=== PATIENT | female | born 1930 | race Caucasian/White ===

== ENCOUNTER 2016-11-18 20:13 | Inpatient (IN) | payer MEDICARE ==
[~2016-11-18] VITALS: Ht 144.8 cm; Wt 38.8 kg
[2016-11-18 21:00] LABS: BASOPHILS % (AUTO) 0.7 % (0.0-2.0); EOSINOPHILS # (AUTO) 0.1 K/uL (0.0-0.7); EOSINOPHILS % (AUTO) 2.3 % (0.0-7.0); HEMATOCRIT 31.3 % (31.2-41.9); HEMOGLOBIN 10.5 g/dL (10.9-14.3); LYMPHOCYTES # (AUTO) 1.5 K/uL (20.0-40.0); LYMPHOCYTES % (AUTO) 27.1 % (20.5-51.5); MEAN CORPUSCULAR HEMOGLOBIN 29.1 uug (24.7-32.8); MEAN CORPUSCULAR HGB CONC 34 g/dL (32.3-35.6); MEAN CORPUSCULAR VOLUME 86.9 fL (75.5-95.3); MONOCYTES # (AUTO) 0.4 K/uL (2.0-10.0); MONOCYTES % (AUTO) 7.7 % (0.0-11.0); NEUTROPHILS # (AUTO) 3.4 K/uL (1.8-8.9); NEUTROPHILS % (AUTO) 62.2 % (38.5-71.5); PLATELET COUNT (AUTO) 296 K/uL (179-408); RED CELL DISTRIBUTION WIDTH 14.7 % (12.3-17.7); WHITE BLOOD COUNT (AUTO) 5.4 K/uL (3.8-11.8)
[2016-11-18 21:13] LABS: ETHANOL 151 MG/DL (0-0)
[2016-11-18 21:15] LABS: CALCIUM 8.8 mg/dL (8.5-10.1); CARBON DIOXIDE 26 mmol/L (21-32); CHLORIDE 101 mmol/L (98-107); CREATININE 1.3 mg/dL (0.6-1.3); GLUCOSE 96 mg/dL (74-106); POTASSIUM 4.6 mmol/L (3.5-5.1); SODIUM SERUM 136 mmol/L (136-145); UREA NITROGEN, BLOOD 21 mg/dL (7-18)
[2016-11-18 21:17] LABS: AMMONIA < 10 umol/L (11-32)
[2016-11-18 21:21] LABS: ALANINE AMINOTRANSFERASE 15 U/L (14-59); ALBUMIN 3.7 g/dL (3.4-5.0); ALKALINE PHOSPHATASE 78 U/L (50-136); ASPARTATE AMINOTRANSFERASE 16 U/L (15-37); BILIRUBIN,DIRECT 0.1 mg/dL (0.0-0.2); BILIRUBIN,TOTAL 0.3 mg/dL (0.2-1.0); TOTAL PROTEIN, SERUM 7.4 g/dL (6.4-8.2)
[2016-11-18 21:26] LABS: TROPONIN I < 0.017 ng/mL (0.00-0.056)
[2016-11-18 21:27] LABS: LACTIC ACID 1.5 mmol/L (0.4-2.0)
[2016-11-18 21:29] LABS: ACETAMINOPHEN < 2.0 ug/mL (10-30)
[2016-11-18] MEDS ORDERED: HALOPERIDOL LACTATE 5 MG/1 ML VIAL IM ONE (21:30)
[2016-11-18] MEDS ORDERED: LORAZEPAM 2 MG/1 ML VIAL IV ONE (21:30)
[2016-11-18] MEDS ORDERED: diphenhydrAMINE 50 MG/1 ML VIAL IM ONE (21:30)
[2016-11-18 21:31] LABS: THYROID STIMULATING HORMONE 0.685 mIU/mL (0.358-3.740)
[2016-11-18] MEDS ORDERED: diphenhydrAMINE 50 MG/1 ML VIAL ONE (21:39)
[2016-11-18] MEDS ORDERED: HALOPERIDOL LACTATE 5 MG/1 ML VIAL ONE (21:40)
[2016-11-18] MEDS ORDERED: LORAZEPAM 2 MG/1 ML VIAL ONE (21:40)
[2016-11-18] MEDS ORDERED: LORAZEPAM 2 MG/1 ML VIAL IM ONE (21:45)
[2016-11-19] MEDS ORDERED: MORPHINE SULFATE 2 MG/1 ML DISP.SYRIN IV PRN
[2016-11-19] MEDS ORDERED: LORAZEPAM 2 MG/1 ML VIAL IV PRN
[2016-11-19] MEDS ORDERED: ACETAMINOPHEN 325 MG TABLET PO PRN ×2 (02:45)
[2016-11-19] MEDS ORDERED: MAGNESIUM HYDROXIDE 30 ML LIQUID UDC PO PRN (02:45)
[2016-11-19] MEDS ORDERED: ONDANSETRON 4 MG/2 ML VIAL IV PRN ×2 (02:45)
[2016-11-19 04:30] VITALS: BP 170/85
[2016-11-19 05:01] VITALS: BP 114/63
[2016-11-19 06:53] LABS: BASOPHILS % (AUTO) 0.5 % (0.0-2.0); EOSINOPHILS # (AUTO) 0.1 K/uL (0.0-0.7); EOSINOPHILS % (AUTO) 1.2 % (0.0-7.0); HEMATOCRIT 31.9 % (31.2-41.9); HEMOGLOBIN 10.9 g/dL (10.9-14.3); LYMPHOCYTES # (AUTO) 1.6 K/uL (20.0-40.0); LYMPHOCYTES % (AUTO) 17.8 % (20.5-51.5); MEAN CORPUSCULAR HEMOGLOBIN 29.7 uug (24.7-32.8); MEAN CORPUSCULAR HGB CONC 34 g/dL (32.3-35.6); MEAN CORPUSCULAR VOLUME 86.9 fL (75.5-95.3); MONOCYTES # (AUTO) 0.7 K/uL (2.0-10.0); MONOCYTES % (AUTO) 7.5 % (0.0-11.0); NEUTROPHILS # (AUTO) 6.5 K/uL (1.8-8.9); PLATELET COUNT (AUTO) 297 K/uL (179-408); RED BLOOD CELL COUNT(AUTO) 3.67 MIL/uL (3.63-4.92); RED CELL DISTRIBUTION WIDTH 14.7 % (12.3-17.7); WHITE BLOOD COUNT (AUTO) 8.9 K/uL (3.8-11.8)
[2016-11-19] MEDS ORDERED: PANTOPRAZOLE SODIUM 40 MG TABLET.DR PO SCH ×2 (07:00)
[2016-11-19 07:16] LABS: THYROID STIMULATING HORMONE 0.568 mIU/mL (0.358-3.740)
[2016-11-19 07:50] LABS: ALBUMIN 3.4 g/dL (3.4-5.0); BILIRUBIN,TOTAL 0.3 mg/dL (0.2-1.0); CALCIUM 8.8 mg/dL (8.5-10.1); CREATININE 1.3 mg/dL (0.6-1.3); MAGNESIUM 2.1 mg/dL (1.8-2.4); PHOSPHOROUS 4.2 mg/dL (2.5-4.9); POTASSIUM 4.6 mmol/L (3.5-5.1)
[2016-11-19] MEDS ORDERED: FOLIC ACID 1 MG TABLET PO SCH (09:00)
[2016-11-19] MEDS ORDERED: THIAMINE HCL 100 MG TABLET PO SCH (09:00)
[2016-11-19 11:45] VITALS: BP 106/59
[2016-11-19] MEDS ORDERED: SUCR1TAB26 PO (13:00)
[2016-11-19] MEDS ORDERED: TROS20TA3 PO (13:00)
[2016-11-19] MEDS ORDERED: RANI300T7 PO (13:00)
[2016-11-19] MEDS ORDERED: MULTIVITAMINS,THERAPEUTIC TABLET PO SCH (13:00)
[2016-11-19] MEDS ORDERED: ASPIRIN EC 81 MG TABLET.DR PO SCH (14:00)
[2016-11-19] MEDS ORDERED: Medication Not On Formulary EA (Trospium Chloride 20 MG) PO SCH (14:45)
[2016-11-19] MEDS ORDERED: RANITIDINE HCL 300 MG PO SCH (14:45)
[2016-11-19] MEDS ORDERED: ATOR10TA PO (14:46)
[2016-11-19] MEDS ORDERED: Folic Acid PO (14:46)
[2016-11-19] MEDS ORDERED: ASPI-618 PO (14:46)
[2016-11-19] MEDS ORDERED: MULT-24 PO (14:46)
[2016-11-19] MEDS ORDERED: PANT40TA2 PO (14:46)
[2016-11-19] MEDS ORDERED: THIA100T13 PO (14:46)
[2016-11-19] MEDS ORDERED: Acetaminophen PO (14:46)
[2016-11-19] MEDS ORDERED: FAMOTIDINE 20 MG TABLET PO SCH (15:15)
[2016-11-19 16:01] VITALS: BP 128/73
[2016-11-19] MEDS ORDERED: SUCRALFATE 1 G TABLET PO SCH (16:30)
[2016-11-19 17:02] LABS: *AMPHETAMINE, URINE NEGATIVE (NEGATIVE); *BARBITURATE, URINE NEGATIVE (NEGATIVE); *CANNABINOID, URINE NEGATIVE (NEGATIVE); *COCCAINE, URINE NEGATIVE (NEGATIVE); *OPIATE, URINE NEGATIVE (NEGATIVE); *PHENCYCLIDINE SCREEN,URINE NEGATIVE (NEGATIVE)
[2016-11-19 18:40] LABS: *BILIRUBIN,URIN NEGATIVE (NEGATIVE); *BLOOD, URINE 1+ (NEGATIVE); *CLARITY,URINE SLIGHTLY CLOUDY (CLEAR); *COLOR,URINE YELLOW (YELLOW); *KETONES,URINE NEGATIVE (NEGATIVE); *PROTEIN,URINE 2+ (NEGATIVE); *UROBILINOGEN,URINE 0.2 E.U./dl (NORMAL); LEUKOCYTE ESTERASE ,URINE 2+ (NEGATIVE); UGLUCOSE NEGATIVE (NEGATIVE)
[2016-11-19 18:51] LABS: NITRITE, URINE POSITIVE (NEGATIVE)
[2016-11-19 18:53] LABS: BACTERIA,URINE MANY /HPF (NONE SEEN); RENAL EPITHELIAL CELLS,URINE MODERATE /LPF (NONE SEEN); SQUAMOUS EPITHELIAL CELL,UR FEW /HPF (NONE SEEN); WBC,URINE TNTC /HPF (0-3)
[2016-11-19] MEDS ORDERED: ATORVASTATIN 10 MG TABLET PO SCH (21:00)
[2016-11-20] MEDS ORDERED: AMLO2.5T2 PO (16:19)
[2016-11-20] MEDS ORDERED: METO50TA7 PO (16:19)
[2016-11-20] MEDS ORDERED: CLOP75TA2 PO (16:19)
[2016-11-20] MEDS ORDERED: LEVO75TA PO (16:19)
[2016-11-20] MEDS ORDERED: RANI300T7 PO (16:19)
[2016-11-20] MEDS ORDERED: FLEC50TA2 PO (16:19)
== END 2016-11-19 17:00 | DRG 896 ==
LOC: ER 20:13 → MED 11-19 03:29
PROVIDERS: ADMIT Nurse Practitioner Acute Care; ATTEND Internal Medicine
DX: F10.129 Alcohol abuse with intoxication, unspecified (principal); I50.33 Acute on chronic diastolic (congestive) heart failure; G92 Toxic encephalopathy; Z86.73 Personal history of transient ischemic attack (TIA), and cerebral infarction without residual deficits; M47.812 Spondylosis without myelopathy or radiculopathy, cervical region; M48.02 Spinal stenosis, cervical region; Y90.6 Blood alcohol level of 120-199 mg/100 ml; D64.9 Anemia, unspecified; E78.5 Hyperlipidemia, unspecified; F17.210 Nicotine dependence, cigarettes, uncomplicated; N32.81 Overactive bladder; Z91.81 History of falling; F39 Unspecified mood [affective] disorder; I11.0 Hypertensive heart disease with heart failure
CPT/HCPCS: 36415; 70030-TC; 70450; 71010; 72125; 80307; 83605; 83735; 84100; 84443; 85025; 85730; 87040; 87077; 87086; 93005; 97001; A4663; G0480-TC; G6040-TC; J1200; J1630; J2060

== ENCOUNTER 2016-11-19 17:27 | Inpatient (IN) | payer MEDICARE ==
[~2016-11-19] VITALS: Ht 144.8 cm; Wt 41.7 kg
[2016-11-19 17:00] VITALS: BP 88/33
[~2016-11-19 17:27] MED LIST: ASPI-618 PO; ATOR10TA PO; Acetaminophen PO; Folic Acid PO; MULT-24 PO; PANT40TA2 PO; RANI300T7 PO; SUCR1TAB26 PO; THIA100T13 PO; TROS20TA3 PO
[2016-11-19] MEDS ORDERED: ACETAMINOPHEN 325 MG TABLET PO PRN (17:45)
[2016-11-19] MEDS ORDERED: MAGNESIUM HYDROXIDE 30 ML LIQUID UDC PO PRN (17:45)
[2016-11-19] MEDS ORDERED: MAG HYDROX/AL HYDROX/SIMETH 30 ML LIQUID UDC PO PRN (17:45)
[2016-11-19] MEDS ORDERED: LORAZEPAM 0.5 MG TABLET PO PRN (19:00)
[2016-11-19] MEDS ORDERED: TEMAZEPAM 7.5 MG CAPSULE PO PRN (19:00)
[2016-11-20] MEDS ORDERED: PANTOPRAZOLE SODIUM 40 MG TABLET.DR PO SCH (07:00)
[2016-11-20] MEDS ORDERED: Medication Not On Formulary EA ([Folic Acid] 1 MG) PO SCH (09:00)
[2016-11-20] MEDS ORDERED: THIAMINE HCL 100 MG TABLET PO SCH (09:00)
[2016-11-20] MEDS ORDERED: SUCRALFATE 1 G TABLET PO SCH (09:00)
[2016-11-20] MEDS ORDERED: ASPIRIN EC 81 MG TABLET.DR PO SCH (09:00)
[2016-11-20] MEDS ORDERED: MULTIVITAMINS,THERAPEUTIC TABLET PO SCH (09:00)
[2016-11-20] MEDS ORDERED: Medication Not On Formulary EA (Trospium Chloride 20 MG) PO SCH (09:00)
[2016-11-20] MEDS ORDERED: FLEC50TA2 PO (16:19)
[2016-11-20] MEDS ORDERED: METO50TA7 PO (16:19)
[2016-11-20] MEDS ORDERED: RANI300T7 PO (16:19)
[2016-11-20] MEDS ORDERED: CLOP75TA2 PO (16:19)
[2016-11-20] MEDS ORDERED: LEVO75TA PO (16:19)
[2016-11-20] MEDS ORDERED: AMLO2.5T2 PO (16:19)
[2016-11-20] MEDS ORDERED: ATORVASTATIN 10 MG TABLET PO SCH (21:00)
== END 2016-11-19 21:45 | disposition short-term general hospital (02) | DRG 885 ==
LOC: GPS 17:27
PROVIDERS: ADMIT Psychiatry & Neurology Psychiatry; ATTEND Internal Medicine
DX: F29 Unspecified psychosis not due to a substance or known physiological condition (principal); N39.0 Urinary tract infection, site not specified

== ENCOUNTER 2016-11-19 21:47 | Inpatient (IN) | payer MEDICARE ==
[~2016-11-19] VITALS: Ht 149.9 cm; Wt 47.6 kg
--- NOTE | 2016-11-19 21:50 | NUR ---
PATIENT ADMITTED FROM [facility] WITH DX OF UTI, UNDER THE CARE OF DR. BRYAN, VIA MD ELOISE AWARE WITH ADMITTING ORDERS.
[2016-11-19] MEDS ORDERED: CEFTRIAXONE 1 G in IV DEXTROSE 5% 50 ML IV SCH (22:45)
[2016-11-19] MEDS ORDERED: ACETAMINOPHEN 325 MG TABLET PO PRN (22:45)
[2016-11-19] MEDS ORDERED: Medication Not On Formulary EA ([Acetaminophen] (Tylenol) 650 MG) PO PRN (22:45)
[2016-11-19] MEDS ORDERED: ONDANSETRON 4 MG/2 ML VIAL IV PRN (22:45)
--- NOTE | 2016-11-19 23:00 | NUR ---
PATIENT VALUABLES REMAINS IN MHU. DURING INVENTORY PATIENT HAS CHECKBOOK AND VISA CARD ON HER PURSE, CHECKBOOK AND VISA WAS GIVEN TO RN LOAD PLANNER FOR SAFE KEEPING.
[2016-11-19] MEDS: IV NS 1000 ML 1,000 ML IV PRN (23:16)
--- NOTE | 2016-11-19 23:30 | NUR ---
PATIENT REFUSED TO ANSWERS QUESTION DURING INTERVIEW REGARDING FAMILY MEDICAL HISTORY, REFUSED BODY CHECK QUESTIONING WHY WE HAVE DO BODY CHECK, AND THE INTERVIEWS. EXPLAINED TO PATIENT THE PURPOSE OF INTERVIEW AND BODY CHECK, BUT DON'T WANT TO ACCEPT EXPLANATIONS.
[2016-11-19] MEDS ORDERED: CEFTRIAXONE 1 G VIAL ONE (23:57)
[2016-11-20 00:35] VITALS: BP 92/57
--- NOTE | 2016-11-20 03:27 | NUR ---
EDUARDO HO ORDERED TO CONTINUE RESTORIL FOR SLEEP, MOM, AND MAALOX.
[2016-11-20] MEDS ORDERED: MAG HYDROX/AL HYDROX/SIMETH 30 ML LIQUID UDC PO PRN (03:30)
[2016-11-20] MEDS ORDERED: MAGNESIUM HYDROXIDE 30 ML LIQUID UDC PO PRN (03:30)
[2016-11-20] MEDS ORDERED: TEMAZEPAM 7.5 MG CAPSULE PO PRN (03:30)
--- NOTE | 2016-11-20 04:48 | NUR ---
PATIENT ALERT, WITH EPISODES OF HOSTILE BEHAVIOR, ALWAYS HAS AN OBJECTION WHEN CARE IS PROVIDED DESPITE EXPLANATIONS PRIOR CARE, REFUSED TO ANSWERS QUESTIONS DURING INTERVIEW. STILL COMPLAIN OF DISCOMFORT WHEN URINATING, BUT REFUSED PAIN MEDS. CONT ON 1;1 SITTER FOR SAFETY.
[2016-11-20 05:16] VITALS: BP 154/73
[2016-11-20 06:56] LABS: BASOPHILS % (AUTO) 0.6 % (0.0-2.0); EOSINOPHILS # (AUTO) 0.1 K/uL (0.0-0.7); EOSINOPHILS % (AUTO) 2.1 % (0.0-7.0); LYMPHOCYTES # (AUTO) 1.8 K/uL (20.0-40.0); LYMPHOCYTES % (AUTO) 34.2 % (20.5-51.5); MEAN CORPUSCULAR HEMOGLOBIN 29.3 uug (24.7-32.8); MEAN CORPUSCULAR HGB CONC 33 g/dL (32.3-35.6); MEAN CORPUSCULAR VOLUME 87.9 fL (75.5-95.3); MONOCYTES # (AUTO) 0.6 K/uL (2.0-10.0); MONOCYTES % (AUTO) 10.8 % (0.0-11.0); NEUTROPHILS # (AUTO) 2.8 K/uL (1.8-8.9); NEUTROPHILS % (AUTO) 52.3 % (38.5-71.5); PLATELET COUNT (AUTO) 269 K/uL (179-408); RED BLOOD CELL COUNT(AUTO) 3.41 MIL/uL (3.63-4.92); RED CELL DISTRIBUTION WIDTH 14.7 % (12.3-17.7)
[2016-11-20] MEDS: PANTOPRAZOLE SODIUM 40 MG TABLET.DR PO SCH (07:00)
[2016-11-20 07:09] LABS: WHITE BLOOD COUNT (AUTO) 5.3 K/uL (3.8-11.8)
[2016-11-20 07:26] LABS: BILIRUBIN,TOTAL 0.3 mg/dL (0.2-1.0); CALCIUM 8.4 mg/dL (8.5-10.1); MAGNESIUM 2.1 mg/dL (1.8-2.4); PHOSPHOROUS 4.2 mg/dL (2.5-4.9); POTASSIUM 4.2 mmol/L (3.5-5.1); TOTAL PROTEIN, SERUM 6.4 g/dL (6.4-8.2)
[2016-11-20 07:27] LABS: CREATININE 1.8 mg/dL (0.6-1.3)
[2016-11-20] MEDS ORDERED: SUCRALFATE 1 G TABLET PO SCH ×2 (07:30→11:30)
[2016-11-20] MEDS: MULTIVITAMINS,THERAPEUTIC TABLET PO SCH (08:49)
[2016-11-20] MEDS: ASPIRIN EC 81 MG TABLET.DR PO SCH (08:49)
[2016-11-20] MEDS: THIAMINE HCL 100 MG TABLET PO SCH (08:49)
[2016-11-20] MEDS: FOLIC ACID 1 MG TABLET PO SCH (08:49)
--- NOTE | 2016-11-20 08:51 | NUR ---
Patient received in bed resting. No s/s of distress noted. Refusing medications and procedures. Keep asking for Synthroid, but there is not past documentation showing that she takes Synthroid on the daily basis. Will follow up with the MD.
[2016-11-20] MEDS ORDERED: Medication Not On Formulary EA (Trospium Chloride 20 MG) PO SCH (09:00)
[2016-11-20] MEDS ORDERED: Medication Not On Formulary EA ([Folic Acid] 1 MG) PO SCH (09:00)
[2016-11-20] MEDS: LORAZEPAM 2 MG/1 ML VIAL IV PRN ×3 (09:32→23:26)
[2016-11-20 11:25] VITALS: BP 116/55
[2016-11-20] MEDS: QUETIAPINE FUMARATE 25 MG TABLET PO SCH ×2 (12:30→20:46)
[2016-11-20] MEDS: DIVALPROEX SPRINKLE 125 MG CAP.SPRINK PO SCH ×2 (12:30→20:47)
[2016-11-20] MEDS: IV NS 1000 ML 1,000 ML IV PRN (14:21)
[2016-11-20 15:41] VITALS: BP 125/55
[2016-11-20] MEDS ORDERED: LEVO75TA PO (16:19)
[2016-11-20] MEDS ORDERED: METO50TA7 PO (16:19)
[2016-11-20] MEDS ORDERED: RANI300T7 PO (16:19)
[2016-11-20] MEDS ORDERED: AMLO2.5T2 PO (16:19)
[2016-11-20] MEDS ORDERED: CLOP75TA2 PO (16:19)
[2016-11-20] MEDS ORDERED: FLEC50TA2 PO (16:19)
--- NOTE | 2016-11-20 18:33 | NUR ---
Patient was very hostile and angry during the day, demanding to get her medications, Medications that she kept stating, but were not order by MD. Refused all medications and procedures ordered. Notified LETTERPRESS SETTER Francisca. Kathryn, charge nurse entered medications that she used to take before. Sitter 1:1. Safety and comfort provided. Will continue monitoring.
[2016-11-20 20:36] VITALS: BP 174/91
[2016-11-20] MEDS: ATORVASTATIN 10 MG TABLET PO SCH (20:45)
--- NOTE | 2016-11-20 20:53 | NUR ---
Patient has an elevated blood pressure of 174/91. Will contact regarding patients blood pressure. All other v/s are WNL. Will continue to monitor. Addendum: 11/21/16 at 0510 by LUCY LANGE RN Contacted regarding patients blood pressure
[2016-11-20] MEDS: CLONIDINE HCL 0.1 MG TABLET PO PRN (21:13)
[2016-11-20] MEDS ORDERED: CLONIDINE HCL 0.1 MG TABLET ONE (21:16)
--- NOTE | 2016-11-20 21:21 | NUR ---
PRN Catapres given for elevated blood pressure of 174/91 per MD order. Will monitor closely and re-evaluate
[2016-11-20 23:00] VITALS: BP 141/80
--- NOTE | 2016-11-20 23:00 | NUR ---
The PRN Catapres given for elevated blood pressure was effective. B/P= 141/80. Will continue to monitor closely
--- NOTE | 2016-11-20 23:30 | NUR ---
PRN Ativan given for extreme agitation. Sitter at bedside for safety. will continue to monitor
[2016-11-21] MEDS: CEFTRIAXONE 1 G in IV DEXTROSE 5% 50 ML IV SCH ×2
[2016-11-21 04:00] VITALS: BP 137/78
[2016-11-21] MEDS: IV NS 1000 ML 1,000 ML IV PRN ×2 (06:23→22:18)
[2016-11-21] MEDS: LORAZEPAM 2 MG/1 ML VIAL IV PRN (06:43)
[2016-11-21 06:51] LABS: BILIRUBIN,TOTAL 0.6 mg/dL (0.2-1.0); CALCIUM 8.7 mg/dL (8.5-10.1); MAGNESIUM 1.8 mg/dL (1.8-2.4); PHOSPHOROUS 3.8 mg/dL (2.5-4.9); POTASSIUM 4.8 mmol/L (3.5-5.1); TOTAL PROTEIN, SERUM 6.6 g/dL (6.4-8.2)
[2016-11-21 06:52] LABS: CREATININE 1.4 mg/dL (0.6-1.3)
[2016-11-21] MEDS: PANTOPRAZOLE SODIUM 40 MG TABLET.DR PO SCH (07:00)
[2016-11-21 07:30] LABS: BASOPHILS % (AUTO) 0.5 % (0.0-2.0); EOSINOPHILS # (AUTO) 0.1 K/uL (0.0-0.7); EOSINOPHILS % (AUTO) 1.9 % (0.0-7.0); HEMATOCRIT 30.8 % (31.2-41.9); HEMOGLOBIN 10.5 g/dL (10.9-14.3); LYMPHOCYTES # (AUTO) 1.8 K/uL (20.0-40.0); LYMPHOCYTES % (AUTO) 29.2 % (20.5-51.5); MEAN CORPUSCULAR HEMOGLOBIN 29.9 uug (24.7-32.8); MEAN CORPUSCULAR HGB CONC 34 g/dL (32.3-35.6); MEAN CORPUSCULAR VOLUME 87.7 fL (75.5-95.3); MONOCYTES # (AUTO) 0.6 K/uL (2.0-10.0); MONOCYTES % (AUTO) 10.8 % (0.0-11.0); NEUTROPHILS # (AUTO) 3.5 K/uL (1.8-8.9); NEUTROPHILS % (AUTO) 57.6 % (38.5-71.5); PLATELET COUNT (AUTO) 267 K/uL (179-408); RED BLOOD CELL COUNT(AUTO) 3.51 MIL/uL (3.63-4.92)
[2016-11-21] MEDS: FOLIC ACID 1 MG TABLET PO SCH (09:00)
[2016-11-21] MEDS: MULTIVITAMINS,THERAPEUTIC TABLET PO SCH (09:00)
[2016-11-21] MEDS ORDERED: LEVOTHYROXINE SODIUM 75 MCG TABLET PO SCH (09:00)
[2016-11-21] MEDS: CLOPIDOGREL 75 MG TABLET PO SCH (09:00)
[2016-11-21] MEDS: THIAMINE HCL 100 MG TABLET PO SCH (09:00)
[2016-11-21] MEDS: DIVALPROEX SPRINKLE 125 MG CAP.SPRINK PO SCH ×2 (09:00→20:53)
--- NOTE | 2016-11-21 09:20 | NUR ---
CLINICAL PHARMACY NOTE(REVIEW OF [facility]) Patient is an 86 year old white female, who again refused to provide her medical and surgical history, who was admitted to medical floor of [facility] for altered mental status. According to records, she was brought her by EMS because she could not walk. Patient reports that she drinks 1 glass of wine at night, and last night she was getting dinner when she fell. She denies head involvement, or syncopal episode. Per record, she has history of alcohol abuse, frequent fall, and small stroke. Patient gets agitated and refused to provide detailed information. Patient was transferred to psychiatric unit and placed on 5150 for GD, and while in the psychiatric unit, her SBP was noted to be 80s, and was found to have urinary tract infection and was decided to send her back to medical floor for management of her medical issues. Overnight, she was noted to be screaming and she had to be moved to another room. All medications review as of today high risk medications include aspirin, quetiapine,temazepam, lorazepam, and pantoprazole. Aspirin increase risk of GI bleed. History incomplete, home medications included flecainide patient may have history of AF. Quetiapine increased risk of cerebrovascular accident (stroke) and greater rate of cognitive decline and mortality in persons with dementia. Ordered by psychiatrist. Temazepam and lorazepam in general, all benzodiazepines increase risk of cognitive impairment, delirium, falls, fractures. Also ordered by psychiatrist. Both ordered on an as needed bases. Pantoprazole increase risk of C.Diff and bone fracture. Use should be limited to no more than 8 weeks unless otherwise indicated Patient is on aspirin pantoprazole may help prevent GI bleeding from aspirin. No recommendations at this time
[2016-11-21] MEDS: QUETIAPINE FUMARATE 25 MG TABLET PO SCH ×2 (09:21→20:53)
[2016-11-21] MEDS: ASPIRIN EC 81 MG TABLET.DR PO SCH (09:23)
--- NOTE | 2016-11-21 09:39 | NUR ---
read patient all meds and pt stated she would take seroquel, depakote, aspirin and plavix. refused all others. however pt took seroquel and then refused the rest. depakote, aspirin and plavix thrown away in sharps container the rest were returned to [facility].
[2016-11-21 10:53] VITALS: BP 145/88
[2016-11-21] MEDS: AMLODIPINE 2.5 MG TABLET PO SCH (14:56)
[2016-11-21] MEDS: LEVOTHYROXINE SODIUM 50 MCG TABLET PO SCH (14:56)
--- NOTE | 2016-11-21 15:49 | NUR ---
Submitted an APS report [Intake ID# [id number]] for self-neglect.
[2016-11-21 15:56] VITALS: BP 150/109
[2016-11-21] MEDS: CLONIDINE HCL 0.1 MG TABLET PO PRN (16:26)
--- NOTE | 2016-11-21 18:26 | NUR ---
PHYSICAL THERAPY SAW PT TODAY AND SAT PT UP IN CHAIR, PT ATE DINNER IN CHAIR AND WAS JUST PUT BACK IN BED. ALL SAFETY AND COMFORT MEASURES ATTENDED TO, PT WAS NOT COMPLIANT WITH ALL MEDICATIONS ONLY CERTAIN ONES THAT SHE WANTED TO TAKE. PT WAS VERBALLY HOSTILE THROUGHOUT SHIFT. 1:1 SITTER AND CALL LIGHT IN REACH
[2016-11-21 19:50] VITALS: BP 127/72
--- NOTE | 2016-11-21 20:00 | NUR ---
PATIENT RECEIVED IN BED RESTING COMFORTABLY WITH 1:1 AT BEDSIDE. PATIENT IS RUDE AND VERBALLY HOSTILE TOWARDS STAFF, REDIRECTION PROVIDED. HEP LOCK IN RIGHT FOREARM RUNNING NORMAL SALINE AT 60ML/HR. PT LUNGS CLEAR WITH AUSCULTATION. BED IN LOW AND LOCKED POSITION WITH CALL LIGHT WITHIN REACH.
[2016-11-21] MEDS: ATORVASTATIN 10 MG TABLET PO SCH (20:53)
--- NOTE | 2016-11-21 22:00 | NUR ---
PT REFUSED BEDTIME MEDICATION DESPITE EDUCATION, WILL NOTIFY MD. PT STATES "I DON'T TAKE DEPAKOTE" 'GET AWAY FROM ME". PT REMAINS HOSTILE UPON APPROACH DESPITE COMFORT MEASURES PROVIDED. NO ACUTE DISTRESS NOTED. 1:! AT BEDSIDE.
[2016-11-22] MEDS: CEFTRIAXONE 1 G in IV DEXTROSE 5% 50 ML IV SCH (01:01)
--- NOTE | 2016-11-22 03:29 | NUR ---
PT RESTING IN BED COMFORTABLY AT THIS TIME. NO ACUTE DISTRESS NOTED. SAFETY MEASURES MAINTAINED.
--- NOTE | 2016-11-22 05:49 | NUR ---
PATIENT RESTING COMFORTABLY IN BED. REMAINS VERBALLY ABUSIVE TOWARDS STAFF UPON APPROACH. NO ACUTE DISTRESS NOTED. SAFETY MEASURES MAINTAINED. 1:1 AT BEDSIDE.
[2016-11-22] MEDS: PANTOPRAZOLE SODIUM 40 MG TABLET.DR PO SCH (06:31)
[2016-11-22] MEDS: LEVOTHYROXINE SODIUM 50 MCG TABLET PO SCH (06:31)
[2016-11-22 07:25] VITALS: BP 143/84
[2016-11-22] MEDS: DIVALPROEX SPRINKLE 125 MG CAP.SPRINK PO SCH (09:00)
[2016-11-22] MEDS: THIAMINE HCL 100 MG TABLET PO SCH (09:00)
[2016-11-22] MEDS: QUETIAPINE FUMARATE 25 MG TABLET PO SCH (09:00)
[2016-11-22] MEDS: MULTIVITAMINS,THERAPEUTIC TABLET PO SCH (09:00)
[2016-11-22] MEDS: ASPIRIN EC 81 MG TABLET.DR PO SCH (09:00)
[2016-11-22] MEDS ORDERED: CLONIDINE HCL 0.1 MG TABLET PO PRN (10:00)
[2016-11-22] MEDS ORDERED: METOPROLOL SUCCINATE XL 50 MG TAB.SR.24H PO SCH (10:00)
[2016-11-22] MEDS: FOLIC ACID 1 MG TABLET PO SCH (10:09)
[2016-11-22] MEDS: CLOPIDOGREL 75 MG TABLET PO SCH (10:10)
[2016-11-22] MEDS: AMLODIPINE 2.5 MG TABLET PO SCH (10:10)
[2016-11-22] MEDS ORDERED: TEMA7.5C PO (12:39)
[2016-11-22] MEDS ORDERED: ASPI-618 PO (12:39)
[2016-11-22] MEDS ORDERED: Acetaminophen PO (12:39)
[2016-11-22] MEDS ORDERED: CLON0.1T14 PO (12:39)
[2016-11-22] MEDS ORDERED: ATOR10TA PO (12:39)
[2016-11-22] MEDS ORDERED: PANT40TA2 PO (12:39)
[2016-11-22] MEDS ORDERED: DIVA125C PO (12:39)
[2016-11-22] MEDS ORDERED: METO50TA7 PO (12:39)
[2016-11-22] MEDS ORDERED: Levothyroxine Sodium PO (12:39)
[2016-11-22] MEDS ORDERED: Folic Acid PO (12:39)
[2016-11-22] MEDS ORDERED: CEFT1PIG2 IV (12:39)
[2016-11-22] MEDS ORDERED: MULT-24 PO (12:39)
[2016-11-22] MEDS ORDERED: MAG30ORA PO (12:39)
[2016-11-22] MEDS ORDERED: QUET25TA PO (12:39)
[2016-11-22] MEDS ORDERED: LORA2VIA6 IV (12:39)
[2016-11-22] MEDS ORDERED: CLOP75TA2 PO (12:39)
[2016-11-22] MEDS ORDERED: THIA100T13 PO (12:39)
[2016-11-22] MEDS ORDERED: Amlodipine Besylate PO (12:39)
[2016-11-22 13:16] LABS: ALBUMIN 3.2 g/dL (3.4-5.0); BILIRUBIN,TOTAL 0.3 mg/dL (0.2-1.0); CALCIUM 8.6 mg/dL (8.5-10.1); CREATININE 1.2 mg/dL (0.6-1.3); MAGNESIUM 1.7 mg/dL (1.8-2.4); PHOSPHOROUS 3.7 mg/dL (2.5-4.9); POTASSIUM 4.2 mmol/L (3.5-5.1); TOTAL PROTEIN, SERUM 7.1 g/dL (6.4-8.2)
[2016-11-22 13:32] LABS: BASOPHILS % (AUTO) 0.3 % (0.0-2.0); EOSINOPHILS # (AUTO) 0.1 K/uL (0.0-0.7); EOSINOPHILS % (AUTO) 0.9 % (0.0-7.0); HEMATOCRIT 32.1 % (31.2-41.9); HEMOGLOBIN 10.9 g/dL (10.9-14.3); LYMPHOCYTES # (AUTO) 0.9 K/uL (20.0-40.0); LYMPHOCYTES % (AUTO) 14.7 % (20.5-51.5); MEAN CORPUSCULAR HEMOGLOBIN 29.7 uug (24.7-32.8); MEAN CORPUSCULAR HGB CONC 34 g/dL (32.3-35.6); MONOCYTES # (AUTO) 0.4 K/uL (2.0-10.0); MONOCYTES % (AUTO) 7.1 % (0.0-11.0); NEUTROPHILS # (AUTO) 4.8 K/uL (1.8-8.9); PLATELET COUNT (AUTO) 271 K/uL (179-408); RED BLOOD CELL COUNT(AUTO) 3.65 MIL/uL (3.63-4.92); RED CELL DISTRIBUTION WIDTH 14.4 % (12.3-17.7); WHITE BLOOD COUNT (AUTO) 6.2 K/uL (3.8-11.8)
[2016-11-22 13:39] VITALS: BP 111/65
--- NOTE | 2016-11-22 14:07 | NUR ---
The patient is medically cleared per Anyi Walters NP. [facility] care of Dr. Veloz. She continues to refuse to take her medications, very rude to the staff including to the MDs. She denies ETOH abuse and insists on going back home. Submitted an APS report for self-neglect on 11/21/16.
[2016-11-22] MEDS: LORAZEPAM 2 MG/1 ML VIAL IV PRN (15:53)
[2016-11-22 16:27] VITALS: BP_SYST 104; BP_SYST 111; BP_DIAS 65; BP_DIAS 66
[2016-11-22] MEDS ORDERED: CEFTAZIDIME 1 G in IV DEXTROSE 5% 50 ML IV SCH ×4 (18:00)
--- NOTE | 2016-11-22 18:47 | NUR ---
Patient been in chair during my shift. No s/s of distress noted. Denied Pain. Refused all medications except her BP and Synthroid. Patient is hostile and angry most of the time, she wants everything on her way. Collaborate with PT, ambulatory only with assistance. She walked around the unit with my assistance and JATIN Cornell. Patient got discharge to [facility]/psych, she refused to sign dc papers. Kathryn, charge nurse and I signed it. Last dose of antibiotics was given. Patient was taken by sheep sorter in stable condition.
[2016-11-23] MEDS ORDERED: CEFTAZIDIME 1 G VIAL IM SCH (17:00)
[2016-11-23] MEDS ORDERED: CEFTAZIDIME 2 GM IM SCH (17:30)
== END 2016-11-22 18:50 | DRG 682 ==
LOC: MED 21:47
PROVIDERS: ADMIT Internal Medicine; ATTEND Internal Medicine
DX: N17.0 Acute kidney failure with tubular necrosis (principal); I50.33 Acute on chronic diastolic (congestive) heart failure; G92 Toxic encephalopathy; N39.0 Urinary tract infection, site not specified; D64.9 Anemia, unspecified; E03.9 Hypothyroidism, unspecified; E78.5 Hyperlipidemia, unspecified; F39 Unspecified mood [affective] disorder; Z86.73 Personal history of transient ischemic attack (TIA), and cerebral infarction without residual deficits; Z91.81 History of falling; Y92.009 Unspecified place in unspecified non-institutional (private) residence as the place of occurrence of the external cause; W19.XXXA Unspecified fall, initial encounter; M48.02 Spinal stenosis, cervical region; M47.812 Spondylosis without myelopathy or radiculopathy, cervical region; I51.7 Cardiomegaly; F17.210 Nicotine dependence, cigarettes, uncomplicated; F10.20 Alcohol dependence, uncomplicated; Y90.9 Presence of alcohol in blood, level not specified; N32.81 Overactive bladder; F29 Unspecified psychosis not due to a substance or known physiological condition; I67.2 Cerebral atherosclerosis; Z90.10 Acquired absence of unspecified breast and nipple; Z85.3 Personal history of malignant neoplasm of breast; Z91.14 Patient's other noncompliance with medication regimen
CPT/HCPCS: 36415; 82306; 83735; 84100; 85025; 92506; 97001; 97003; 97116; 97530; A4663; J0696; J0713; J2060; J7030; J7060

== ENCOUNTER 2016-11-22 19:53 | Inpatient (IN) | payer MEDICARE ==
[~2016-11-22] VITALS: Ht 152.4 cm; Wt 41.7 kg
[~2016-11-22 19:53] MED LIST changes: +AMLO2.5T2 PO; +Amlodipine Besylate PO; +CEFT1PIG2 IV; +CLON0.1T14 PO; +CLOP75TA2 PO; +DIVA125C PO; +FLEC50TA2 PO; +LEVO75TA PO; +LORA2VIA6 IV; +Levothyroxine Sodium PO; +MAG30ORA PO; +METO50TA7 PO; +QUET25TA PO; +TEMA7.5C PO
[2016-11-22] MEDS ORDERED: ACETAMINOPHEN 325 MG TABLET PO PRN (20:00)
[2016-11-22] MEDS ORDERED: CLONAZEPAM 0.5 MG TABLET PO SCH (20:00)
[2016-11-22] MEDS ORDERED: TEMAZEPAM 7.5 MG CAPSULE PO PRN (20:00)
[2016-11-22] MEDS ORDERED: MAGNESIUM HYDROXIDE 30 ML LIQUID UDC PO PRN (20:00)
[2016-11-22 20:46] VITALS: BP 139/79
--- NOTE | 2016-11-22 22:00 | NUR ---
received to care, at 1900, from the second floor, on a 14 day hold, for being gravely disabled. she was initially admitted here from home, on 11/19/16, but she was transferred to medical floor for low b/p, and UTI. before coming to the hospital, she was reportedly living at home, alone, with a parts counter specialist caregiver, who comes to help, only with shopping, and transportation. she fell at home, and called 911. the paramedics brought her to the emergency room, because she could not walk. upon arrival at the hospital, she was uncooperative, and non compliant with both medications, and care. upon arrival on the unit, she was cooperative with admission, but denies the need to be in the hospital. she was oriented to the unit, and assisted to bed. as of 2199, she remains asleep. no distress noted.
--- NOTE | 2016-11-23 06:00 | NUR ---
slept 8 hours, total. assisted with AM care, and shower. currently up in laura chair. no distress noted.
[2016-11-23 07:30] VITALS: BP 133/76
[2016-11-23] MEDS ORDERED: MAG HYDROX/AL HYDROX/SIMETH 30 ML LIQUID UDC PO PRN (09:30)
[2016-11-23] MEDS ORDERED: TEMAZEPAM 7.5 MG CAPSULE PO PRN (09:30)
[2016-11-23] MEDS ORDERED: CLONIDINE HCL 0.1 MG TABLET PO PRN (09:30)
[2016-11-23] MEDS ORDERED: Medication Not On Formulary EA ([Acetaminophen] (Tylenol) 650 MG) PO PRN (09:30)
[2016-11-23] MEDS: AMLODIPINE 2.5 MG TABLET PO SCH ×2 (09:45→11:46)
[2016-11-23] MEDS: SUCRALFATE 1 G TABLET PO SCH ×3 (11:40→20:46)
[2016-11-23] MEDS: QUETIAPINE FUMARATE 25 MG TABLET PO SCH ×3 (12:43→16:49)
[2016-11-23] MEDS: DIVALPROEX SPRINKLE 125 MG CAP.SPRINK PO SCH ×3 (12:43→16:49)
[2016-11-23] MEDS: CEFTAZIDIME 1 G VIAL IM SCH ×2 (16:48→17:00)
[2016-11-23] MEDS ORDERED: Medication Not On Formulary EA (Trospium Chloride 20 MG) PO SCH (17:00)
[2016-11-23] MEDS ORDERED: CEPHALEXIN MONOHYDRATE 500 MG CAPSULE PO SCH (17:00)
[2016-11-23 20:34] VITALS: BP 114/64
[2016-11-23] MEDS: ATORVASTATIN 10 MG TABLET PO SCH (20:46)
[2016-11-23] MEDS ORDERED: DIVALPROEX SPRINKLE 125 MG CAP.SPRINK PO SCH (21:00)
[2016-11-23] MEDS ORDERED: QUETIAPINE FUMARATE 25 MG TABLET PO SCH (21:00)
--- NOTE | 2016-11-23 22:00 | NUR ---
received to care, up in laura chair at nurses station, anxious, but pleasant, upon approach. remains needy and attention seeking. selective with medications. took only carafate, at bedtime. bedtime snack, and fluids, given. assisted to bed at 2150. remains awake, in bed. no distress noted. all needs met. will continue to monitor closely.
--- NOTE | 2016-11-23 22:40 | NUR ---
appears to be asleep. no distress noted.
--- NOTE | 2016-11-24 06:00 | NUR ---
slept 6.25 hours. refused AM synthroid, and protonix.
[2016-11-24] MEDS: PANTOPRAZOLE SODIUM 40 MG TABLET.DR PO SCH (06:51)
[2016-11-24] MEDS: LEVOTHYROXINE SODIUM 50 MCG TABLET PO SCH (06:52)
[2016-11-24] MEDS: SUCRALFATE 1 G TABLET PO SCH ×3 (06:53→11:44)
[2016-11-24] MEDS ORDERED: LEVOTHYROXINE SODIUM PO SCH (07:00)
[2016-11-24 07:30] VITALS: BP 163/89
[2016-11-24 07:43] LABS: BASOPHILS % (AUTO) 0.3 % (0.0-2.0); EOSINOPHILS # (AUTO) 0.1 K/uL (0.0-0.7); HEMATOCRIT 30.4 % (31.2-41.9); HEMOGLOBIN 10.1 g/dL (10.9-14.3); LYMPHOCYTES # (AUTO) 1.3 K/uL (20.0-40.0); LYMPHOCYTES % (AUTO) 22.5 % (20.5-51.5); MEAN CORPUSCULAR HEMOGLOBIN 29.4 uug (24.7-32.8); MEAN CORPUSCULAR HGB CONC 33 g/dL (32.3-35.6); MEAN CORPUSCULAR VOLUME 88.6 fL (75.5-95.3); MONOCYTES # (AUTO) 0.5 K/uL (2.0-10.0); MONOCYTES % (AUTO) 9.3 % (0.0-11.0); NEUTROPHILS # (AUTO) 3.8 K/uL (1.8-8.9); NEUTROPHILS % (AUTO) 65.9 % (38.5-71.5); PLATELET COUNT (AUTO) 252 K/uL (179-408); RED BLOOD CELL COUNT(AUTO) 3.43 MIL/uL (3.63-4.92); RED CELL DISTRIBUTION WIDTH 14.4 % (12.3-17.7); WHITE BLOOD COUNT (AUTO) 5.7 K/uL (3.8-11.8)
[2016-11-24 07:51] LABS: CALCIUM 9.1 mg/dL (8.5-10.1); CREATININE 1.2 mg/dL (0.6-1.3); POTASSIUM 4.6 mmol/L (3.5-5.1)
[2016-11-24] MEDS: QUETIAPINE FUMARATE 25 MG TABLET PO SCH ×3 (09:00→17:00)
[2016-11-24] MEDS ORDERED: Medication Not On Formulary EA ([Folic Acid] 1 MG) PO SCH (09:00)
[2016-11-24] MEDS: DIVALPROEX SPRINKLE 125 MG CAP.SPRINK PO SCH ×3 (09:00→17:00)
[2016-11-24] MEDS: ASPIRIN EC 81 MG TABLET.DR PO SCH (09:00)
[2016-11-24] MEDS ORDERED: AMLODIPINE BESYLATE PO SCH (09:00)
[2016-11-24] MEDS: THIAMINE HCL 100 MG TABLET PO SCH (09:36)
[2016-11-24] MEDS: CLOPIDOGREL 75 MG TABLET PO SCH (09:36)
[2016-11-24] MEDS: METOPROLOL SUCCINATE XL 50 MG TAB.SR.24H PO SCH (09:36)
[2016-11-24] MEDS: FOLIC ACID 1 MG TABLET PO SCH (09:36)
[2016-11-24] MEDS: AMLODIPINE 2.5 MG TABLET PO SCH (09:36)
[2016-11-24] MEDS: MULTIVITAMINS,THERAPEUTIC TABLET PO SCH (09:36)
--- NOTE | 2016-11-24 11:51 | NUR ---
GPS/RN- Discussed with Dr Rodriguez, patient refused IM antibiotic at this time, no option at this time for PO meds based on urine sensitivity, will continue to redirect patient and educate on need for med compliance. Dr Cuellar, will collect new urine per MD orders to check current level of UTI
[2016-11-24 12:16] VITALS: BP 118/61
--- NOTE | 2016-11-24 12:53 | NUR ---
Initial discharge instructions: Pt resides at home alone [[address],[place],[address]] and has a friend/unofficial caregiver,Mady Escobedo.Per pt,she would like to return home upon discharge and is refusing placement.HAYDER spoke with pt's friend,Mady [phone] who reported she would like the pt to be placed.However,Mady stated she understood the pt is refusing and reported she does receive Home Health.HAYDER will speak with pt,friend,and MD regarding appropriate discharge plans.SW will form a safe and proper discharge.
[2016-11-24 13:18] LABS: *BILIRUBIN,URIN NEGATIVE (NEGATIVE); *BLOOD, URINE Trace-lysed (NEGATIVE); *CLARITY,URINE CLEAR (CLEAR); *COLOR,URINE YELLOW (YELLOW); *KETONES,URINE NEGATIVE (NEGATIVE); *PROTEIN,URINE NEGATIVE (NEGATIVE); *UROBILINOGEN,URINE 0.2 E.U./dl (NORMAL); LEUKOCYTE ESTERASE ,URINE 1+ (NEGATIVE); NITRITE, URINE NEGATIVE (NEGATIVE); UGLUCOSE NEGATIVE (NEGATIVE)
--- NOTE | 2016-11-24 13:23 | NUR ---
Children Counselor: Patient provided verbal consent for SW to print/provide current medication list to her friend/unofficial caregiver- Mady Escobedo.
[2016-11-24 13:35] LABS: SQUAMOUS EPITHELIAL CELL,UR FEW /HPF (NONE SEEN); WBC,URINE 80-100 /HPF (0-3)
[2016-11-24 13:42] LABS: BACTERIA,URINE FEW /HPF (NONE SEEN)
[2016-11-24 13:43] LABS: TRANSITIONAL EPI CELLS,URINE FEW /LPF (NONE SEEN)
[2016-11-24 16:00] VITALS: BP 119/69
[2016-11-24] MEDS: CEFTAZIDIME 1 G VIAL IM SCH (16:34)
[2016-11-24 20:05] VITALS: BP 96/50
[2016-11-24] MEDS: ATORVASTATIN 10 MG TABLET PO SCH (21:00)
[2016-11-24] MEDS: MAG HYDROX/AL HYDROX/SIMETH 30 ML LIQUID UDC PO PRN (23:25)
--- NOTE | 2016-11-24 23:29 | NUR ---
PATIENT HAD 1 EPISODE OF EMESIS COLOR RED, PATIENT HAD TUNA SANDWICH AND CRANBERRY JUICE X2, PATIENT STATED " I FEEL BETTER." VITALS 140/82 99% ON ROOM AIR, HR 90 RESPIRATIONS 18. PATIENT STATED " I TAKE PREVACID AT HOME AND IT HELPS ME, SO I DON'T GET NAUSEA/VOMITING." EXPLAINED TO THE PATIENT THAT PREVACID AND PROTONIX WORK THE SAME AND YOU HAVE BEEN REFUSING MEDICATION. "I WILL TRY IT IN THE MORNING." Addendum: 11/25/16 at 0008 by GIULIA BOWLING RN PATIENT CONTINUES TO BE ARGUMENTATIVE, AND REFUSING MEDICATION EDUCATED PATIENT ON THE IMPORTANCE OF TAKING MEDICATION. REFUSED HS MEDICATION, COMPLAINT WITH MYLANTA GIVEN ORDERED. WILL CONTINUE TO MONITOR. BED IN LOWEST POSITION, BED LOCKED AND BED ALARM ON WHILE IN BED.
[2016-11-25] MEDS: LEVOTHYROXINE SODIUM 50 MCG TABLET PO SCH (06:48)
[2016-11-25] MEDS: PANTOPRAZOLE SODIUM 40 MG TABLET.DR PO SCH (06:48)
[2016-11-25 08:03] VITALS: BP 114/72
[2016-11-25] MEDS: AMLODIPINE 2.5 MG TABLET PO SCH (09:00)
[2016-11-25] MEDS: DIVALPROEX SPRINKLE 125 MG CAP.SPRINK PO SCH ×3 (09:00→16:23)
[2016-11-25] MEDS: NICOTINE 14 MG/24HR PATCH TD SCH (09:00)
[2016-11-25] MEDS: QUETIAPINE FUMARATE 25 MG TABLET PO SCH ×3 (09:00→16:24)
[2016-11-25] MEDS: ASPIRIN EC 81 MG TABLET.DR PO SCH (09:00)
[2016-11-25] MEDS: FOLIC ACID 1 MG TABLET PO SCH (09:28)
[2016-11-25] MEDS: THIAMINE HCL 100 MG TABLET PO SCH (09:28)
[2016-11-25] MEDS: CLOPIDOGREL 75 MG TABLET PO SCH (09:28)
[2016-11-25] MEDS: METOPROLOL SUCCINATE XL 50 MG TAB.SR.24H PO SCH (09:31)
[2016-11-25] MEDS: MULTIVITAMINS,THERAPEUTIC TABLET PO SCH (10:18)
[2016-11-25 15:16] VITALS: BP 104/55
[2016-11-25] MEDS: CEFTAZIDIME 1 G VIAL IM SCH (16:13)
[2016-11-25 20:00] VITALS: BP 151/79
[2016-11-25] MEDS: ATORVASTATIN 10 MG TABLET PO SCH (20:43)
--- NOTE | 2016-11-25 22:31 | NUR ---
PATIENT CONTINUES TO REFUSE HS MEDICATION, EDUCATED PATIENT ON THE IMPORTANCE OF TAKING MEDICATION CONTINUES TO REFUSE. NO AGGRESSIVE OR COMBATIVE BEHAVIOR NOTED WILL CONTINUE TO MONITOR AND REDIRECT NEEDED.
[2016-11-25] MEDS: MAG HYDROX/AL HYDROX/SIMETH 30 ML LIQUID UDC PO PRN (23:28)
[2016-11-26] MEDS: LEVOTHYROXINE SODIUM 50 MCG TABLET PO SCH (06:28)
[2016-11-26] MEDS: PANTOPRAZOLE SODIUM 40 MG TABLET.DR PO SCH (06:28)
--- NOTE | 2016-11-26 06:39 | NUR ---
PATIENT WANTED MORNING MEDICATION, EXPLAINED SHE HAS PROTONIX AND SYNTHROID ORDERED PATIENT REFUSED MEDICATION STATING " I WANT MY OWN MEDICATION I DON'T TAKE GENERIC MEDICATION GIVE ME MY OWN MEDICATION GO TO PHARMACY AND GET MY OWN PERSONAL MEDICATION, I AM NOT GOING TO TAKE YOUR MEDICATION." PATIENT EDUCATED ON THE IMPORTANCE OF TAKING MEDICATION CONTINUES TO REFUSE. PATIENT BECAME LABILE, IRRITABLE, DEMANDING, AND NEEDY. Addendum: 11/26/16 at 0648 by GIULIA BOWLING RN PATIENT IS STAFF SPLITTING.
[2016-11-26 08:00] VITALS: BP 103/56
[2016-11-26] MEDS: MULTIVITAMINS,THERAPEUTIC TABLET PO SCH (08:44)
[2016-11-26] MEDS: CLOPIDOGREL 75 MG TABLET PO SCH (08:45)
[2016-11-26] MEDS: THIAMINE HCL 100 MG TABLET PO SCH (08:45)
[2016-11-26] MEDS: FOLIC ACID 1 MG TABLET PO SCH (08:45)
[2016-11-26] MEDS: ASPIRIN EC 81 MG TABLET.DR PO SCH (08:52)
[2016-11-26] MEDS: QUETIAPINE FUMARATE 25 MG TABLET PO SCH ×2 (08:52→13:00)
[2016-11-26] MEDS: DIVALPROEX SPRINKLE 125 MG CAP.SPRINK PO SCH ×2 (08:52→13:00)
[2016-11-26] MEDS: AMLODIPINE 2.5 MG TABLET PO SCH (08:52)
[2016-11-26 08:53] VITALS: BP 103/56
[2016-11-26] MEDS: METOPROLOL SUCCINATE XL 50 MG TAB.SR.24H PO SCH (08:53)
[2016-11-26] MEDS: NICOTINE 14 MG/24HR PATCH TD SCH (08:53)
--- NOTE | 2016-11-26 10:20 | NUR ---
DC Note: Patient will be discharged home [[address] [place], [address]] via private transportation at 2:00 pm. Spoke patients friend, Mady Escobedo [phone] who stated she would flower buncher or picker the patient today. Patient is aware and agreeable with discharge plans. Patient will follow-up with Dr.Daniel Mae (Benzene Operator) [[address], [place] [address]; ] and was referred to , , for psychiatric referrals. Patient was provided with a brief substance abuse intervention and referred to [facility] , [facility] , and [facility] . Patient will present at [facility] [[address] [facility] [address]; [phone]] at 9:00 am on 11/29/16 for intake screening. Patient has an open episode with [facility], and was faxed over an order to [facility] [ / Fx: [phone]]. HAYDER called [facility] [phone] and left voicemail including discharge plans.
--- NOTE | 2016-11-26 12:03 | NUR ---
Editor Greeting Card: Patient's psychosocial assessment done on 11/25/16 is incorrect (wrong patient). Please refer to psychosocial assessment completed on 11/24/16.
--- NOTE | 2016-11-26 15:36 | NUR ---
1445 DISCHARGED INSTRUCTIONS GIVEN BOTH PATIENT AND CLINICAL RESEARCH ASSISTANT REGARDING MEDICATIONS TO CONTINUE AT HOME= BOTH OF THEM VERBALIZED UNDERSTANDING. ALL VALUABLES RETURNED AND SIGNED. PATIENT ALERT AND OXE . DENIES SUICIDAL THOUGHTS/ DENIES HOMICIDAL IDEATION. NO HALLUCINATIONS/ NO DELUSIONS NOTED.1520 BROUGHT PATIENT TO PARKING AREA VIA W/C AND WENT HOME VIA PRIVATE CAR WITH THE CLINICAL RESEARCH ASSISTANT.
[2016-11-26] MEDS ORDERED: CEFTAZIDIME 1 G VIAL IM ONE (16:00)
== END 2016-11-26 15:20 | disposition home health service (06) | DRG 885 ==
LOC: GPS 19:53
PROVIDERS: ADMIT Psychiatry & Neurology Psychiatry; ATTEND Internal Medicine
DX: F39 Unspecified mood [affective] disorder (principal); N17.0 Acute kidney failure with tubular necrosis; N39.0 Urinary tract infection, site not specified; F29 Unspecified psychosis not due to a substance or known physiological condition; I10 Essential (primary) hypertension; Y90.9 Presence of alcohol in blood, level not specified; D63.8 Anemia in other chronic diseases classified elsewhere; E03.9 Hypothyroidism, unspecified; E78.5 Hyperlipidemia, unspecified; F17.210 Nicotine dependence, cigarettes, uncomplicated; I25.10 Atherosclerotic heart disease of native coronary artery without angina pectoris; Z85.3 Personal history of malignant neoplasm of breast; Z86.73 Personal history of transient ischemic attack (TIA), and cerebral infarction without residual deficits; Z90.10 Acquired absence of unspecified breast and nipple; B96.5 Pseudomonas (aeruginosa) (mallei) (pseudomallei) as the cause of diseases classified elsewhere; Z91.81 History of falling; F10.20 Alcohol dependence, uncomplicated
CPT/HCPCS: 36415; 85025; 87077; 87086; 97001; 97116; 97530; J0713

== ENCOUNTER 2017-09-29 13:10 | Inpatient (IN) | payer MEDICARE ==
[~2017-09-29] VITALS: Ht 152.4 cm; Wt 39.5 kg
[~2017-09-29 13:10] MED LIST changes: -AMLO2.5T2 PO; +CLOP75TA15 PO; -CLOP75TA2 PO; -FLEC50TA2 PO; -LEVO75TA PO; -LORA2VIA6 IV; -RANI300T7 PO; -SUCR1TAB26 PO; +SUCR1TAB31 PO
[2017-09-29 17:34] LABS: *BILIRUBIN,URIN NEGATIVE (NEGATIVE); *BLOOD, URINE NEGATIVE (NEGATIVE); *CLARITY,URINE CLEAR (CLEAR); *COLOR,URINE YELLOW (YELLOW); *KETONES,URINE NEGATIVE (NEGATIVE); *PROTEIN,URINE 1+ (NEGATIVE); *UROBILINOGEN,URINE 0.2 E.U./dl (NORMAL); LEUKOCYTE ESTERASE ,URINE TRACE (NEGATIVE); NITRITE, URINE NEGATIVE (NEGATIVE); UGLUCOSE NEGATIVE (NEGATIVE)
[2017-09-29 17:41] LABS: *AMPHETAMINE, URINE NEGATIVE (NEGATIVE); *BARBITURATE, URINE NEGATIVE (NEGATIVE); *CANNABINOID, URINE NEGATIVE (NEGATIVE); *COCCAINE, URINE NEGATIVE (NEGATIVE); *OPIATE, URINE NEGATIVE (NEGATIVE); *PHENCYCLIDINE SCREEN,URINE NEGATIVE (NEGATIVE)
[2017-09-29 18:02] LABS: RBC,URINE 0-3 /HPF (0-3); SQUAMOUS EPITHELIAL CELL,UR MODERATE /HPF (NONE SEEN)
[2017-09-29] MEDS ORDERED: LORAZEPAM 2 MG/1 ML VIAL IV ONE (19:15)
[2017-09-29] MEDS ORDERED: LORAZEPAM 2 MG/1 ML VIAL ONE (19:36)
[2017-09-29] MEDS ORDERED: LORAZEPAM 2 MG/1 ML VIAL IM ONE (19:45)
[2017-09-29 21:20] LABS: CARBON DIOXIDE 26 mmol/L (21-32); CHLORIDE 103 mmol/L (98-107); CREATININE 1.6 mg/dL (0.6-1.3); GLUCOSE 96 mg/dL (74-106); POTASSIUM 4.8 mmol/L (3.5-5.1); UREA NITROGEN, BLOOD 32 mg/dL (7-18)
[2017-09-29 21:30] LABS: THYROID STIMULATING HORMONE 0.625 mIU/mL (0.358-3.740)
[2017-09-29 21:34] LABS: ALANINE AMINOTRANSFERASE 14 U/L (14-59); ALKALINE PHOSPHATASE 79 U/L (50-136); ASPARTATE AMINOTRANSFERASE 22 U/L (15-37); BILIRUBIN,DIRECT 0.1 mg/dL (0.0-0.2); BILIRUBIN,TOTAL 0.3 mg/dL (0.2-1.0); TOTAL PROTEIN, SERUM 7.4 g/dL (6.4-8.2)
[2017-09-29 21:36] LABS: ETHANOL < 3 MG/DL (0-0)
[2017-09-29 21:37] LABS: ACETAMINOPHEN < 2.0 ug/mL (10-30)
[2017-09-29] MEDS ORDERED: CEPHALEXIN MONOHYDRATE 500 MG CAPSULE PO ONE (21:45)
[2017-09-29 22:06] LABS: EOSINOPHILS # (AUTO) 0.1 K/uL (0.0-0.7); EOSINOPHILS % (AUTO) 1.4 % (0.0-7.0); HEMOGLOBIN 11.6 g/dL (10.9-14.3); LYMPHOCYTES # (AUTO) 1.6 K/uL (20.0-40.0); LYMPHOCYTES % (AUTO) 30.2 % (20.5-51.5); MEAN CORPUSCULAR HGB CONC 33 g/dL (32.3-35.6); MEAN CORPUSCULAR VOLUME 93.4 fL (75.5-95.3); MONOCYTES # (AUTO) 0.5 K/uL (2.0-10.0); MONOCYTES % (AUTO) 10.6 % (0.0-11.0); NEUTROPHILS # (AUTO) 2.9 K/uL (1.8-8.9); NEUTROPHILS % (AUTO) 56.8 % (38.5-71.5); PLATELET COUNT (AUTO) 226 K/uL (179-408); RED BLOOD CELL COUNT(AUTO) 3.75 MIL/uL (3.63-4.92); WHITE BLOOD COUNT (AUTO) 5.2 K/uL (3.8-11.8)
[2017-09-29] MEDS ORDERED: CEPHALEXIN MONOHYDRATE 500 MG CAPSULE ONE (22:37)
[2017-09-29] MEDS ORDERED: CEFTRIAXONE 500 MG VIAL ONE ×2 (22:56→23:07)
[2017-09-29] MEDS ORDERED: CEFTRIAXONE 500 MG VIAL IM ONE (23:00)
[2017-09-29 23:55] VITALS: BP 178/77
[2017-09-30] MEDS ORDERED: MAGNESIUM HYDROXIDE 30 ML LIQUID UDC PO PRN ×2 (00:10)
[2017-09-30] MEDS: ACETAMINOPHEN 325 MG TABLET PO PRN (00:13)
[2017-09-30 01:00] VITALS: BP 120/68
[2017-09-30] MEDS ORDERED: DIVA125C PO (02:17)
[2017-09-30 07:30] VITALS: BP 151/61
[2017-09-30 08:13] LABS: *BILIRUBIN,URIN NEGATIVE (NEGATIVE); *BLOOD, URINE Trace-intact (NEGATIVE); *CLARITY,URINE CLEAR (CLEAR); *COLOR,URINE YELLOW (YELLOW); *KETONES,URINE NEGATIVE (NEGATIVE); *PROTEIN,URINE 1+ (NEGATIVE); *UROBILINOGEN,URINE 0.2 E.U./dl (NORMAL); LEUKOCYTE ESTERASE ,URINE TRACE (NEGATIVE); NITRITE, URINE NEGATIVE (NEGATIVE); UGLUCOSE NEGATIVE (NEGATIVE)
[2017-09-30 08:39] LABS: BACTERIA,URINE FEW /HPF (NONE SEEN); RBC,URINE 0-3 /HPF (0-3); RENAL EPITHELIAL CELLS,URINE FEW /LPF (NONE SEEN); SQUAMOUS EPITHELIAL CELL,UR MODERATE /HPF (NONE SEEN)
[2017-09-30] MEDS: DIVALPROEX SPRINKLE 125 MG CAP.SPRINK PO SCH ×2 (09:45→20:47)
[2017-09-30] MEDS: QUETIAPINE FUMARATE 25 MG TABLET PO SCH ×2 (09:45→20:47)
[2017-09-30] MEDS ORDERED: TEMAZEPAM 7.5 MG CAPSULE PO PRN ×2 (10:15)
[2017-09-30] MEDS: CEPHALEXIN MONOHYDRATE 250 MG CAPSULE PO SCH ×2 (13:52→22:00)
[2017-09-30] MEDS ORDERED: CEPHALEXIN MONOHYDRATE 500 MG CAPSULE PO SCH (14:00)
[2017-09-30] MEDS: MIRTAZAPINE 15 MG TABLET PO SCH (20:47)
[2017-09-30 21:34] VITALS: BP 109/51
[2017-10-01] MEDS: CEPHALEXIN MONOHYDRATE 250 MG CAPSULE PO SCH ×3 (06:00→22:00)
[2017-10-01 07:30] VITALS: BP 130/80
[2017-10-01] MEDS: QUETIAPINE FUMARATE 25 MG TABLET PO SCH ×2 (09:00→20:17)
[2017-10-01] MEDS: DIVALPROEX SPRINKLE 125 MG CAP.SPRINK PO SCH ×2 (09:00→20:17)
[2017-10-01 15:00] VITALS: BP 185/87
[2017-10-01] MEDS: CLONIDINE-TTS 1 PATCH TD SCH (17:35)
[2017-10-01] MEDS: MIRTAZAPINE 15 MG TABLET PO SCH (20:17)
[2017-10-01 20:23] VITALS: BP 152/80
[2017-10-01 23:00] VITALS: BP 210/104
[2017-10-01] MEDS: CLONAZEPAM 0.5 MG TABLET PO PRN (23:16)
[2017-10-01] MEDS: MAG HYDROX/AL HYDROX/SIMETH 30 ML LIQUID UDC PO PRN (23:16)
[2017-10-01] MEDS: ACETAMINOPHEN 325 MG TABLET PO PRN (23:17)
[2017-10-01 23:37] VITALS: BP 155/87
[2017-10-02] MEDS: CEPHALEXIN MONOHYDRATE 250 MG CAPSULE PO SCH ×3 (05:38→22:00)
[2017-10-02 08:00] VITALS: BP 173/85
[2017-10-02] MEDS: DIVALPROEX SPRINKLE 125 MG CAP.SPRINK PO SCH ×2 (08:29→20:48)
[2017-10-02] MEDS: QUETIAPINE FUMARATE 25 MG TABLET PO SCH ×2 (08:29→20:48)
[2017-10-02 16:21] VITALS: BP 142/75
[2017-10-02 20:00] VITALS: BP 106/58
[2017-10-02] MEDS: MIRTAZAPINE 15 MG TABLET PO SCH (20:48)
[2017-10-03] MEDS: CEPHALEXIN MONOHYDRATE 250 MG CAPSULE PO SCH ×3 (06:00→22:00)
[2017-10-03 07:30] VITALS: BP 116/64
[2017-10-03] MEDS: QUETIAPINE FUMARATE 25 MG TABLET PO SCH ×3 (09:00→20:11)
[2017-10-03] MEDS: DIVALPROEX SPRINKLE 125 MG CAP.SPRINK PO SCH ×3 (09:00→20:11)
[2017-10-03 15:09] VITALS: BP 107/50
[2017-10-03 20:00] VITALS: BP 120/61
[2017-10-03] MEDS: MIRTAZAPINE 15 MG TABLET PO SCH (20:11)
[2017-10-04] MEDS: CEPHALEXIN MONOHYDRATE 250 MG CAPSULE PO SCH ×3 (06:00→13:42)
[2017-10-04 07:30] VITALS: BP 108/66
[2017-10-04] MEDS: DIVALPROEX SPRINKLE 125 MG CAP.SPRINK PO SCH ×3 (09:00→20:02)
[2017-10-04] MEDS: QUETIAPINE FUMARATE 25 MG TABLET PO SCH ×3 (09:00→20:02)
[2017-10-04] MEDS ORDERED: CLONIDINE HCL 0.1 MG TABLET PO PRN (10:45)
[2017-10-04] MEDS: SUCRALFATE 1 G TABLET PO SCH ×3 (13:13→20:02)
[2017-10-04] MEDS: Z GUARD REMEDY PASTE 57 GM TUBE TOP SCH ×2 (13:14→20:02)
[2017-10-04 16:11] VITALS: BP 106/64
[2017-10-04] MEDS: CEFTRIAXONE 1 G VIAL IM SCH (17:00)
[2017-10-04] MEDS ORDERED: Medication Not On Formulary EA (Trospium Chloride 20 MG) PO SCH (17:00)
[2017-10-04 19:56] VITALS: BP 102/57
[2017-10-04] MEDS: MAG HYDROX/AL HYDROX/SIMETH 30 ML LIQUID UDC PO PRN (20:01)
[2017-10-04] MEDS: ATORVASTATIN 10 MG TABLET PO SCH (20:02)
[2017-10-04] MEDS: MIRTAZAPINE 15 MG TABLET PO SCH (20:02)
[2017-10-04] MEDS: OXYBUTYNIN CHLORIDE 5 MG TABLET PO SCH (20:02)
[2017-10-05] MEDS: LEVOTHYROXINE SODIUM 50 MCG TABLET PO SCH (06:22)
[2017-10-05] MEDS: PANTOPRAZOLE SODIUM 40 MG TABLET.DR PO SCH (06:22)
[2017-10-05] MEDS ORDERED: LEVOTHYROXINE SODIUM PO SCH (07:00)
[2017-10-05] MEDS: SUCRALFATE 1 G TABLET PO SCH ×4 (07:30→20:12)
[2017-10-05 08:00] VITALS: BP 115/51
[2017-10-05] MEDS: QUETIAPINE FUMARATE 25 MG TABLET PO SCH ×2 (09:00→21:00)
[2017-10-05] MEDS: FOLIC ACID 1 MG TABLET PO SCH (09:00)
[2017-10-05] MEDS: Z GUARD REMEDY PASTE 57 GM TUBE TOP SCH ×2 (09:00→21:20)
[2017-10-05] MEDS: OXYBUTYNIN CHLORIDE 5 MG TABLET PO SCH ×2 (09:00→21:00)
[2017-10-05] MEDS: THIAMINE HCL 100 MG TABLET PO SCH (09:00)
[2017-10-05] MEDS: CLOPIDOGREL 75 MG TABLET PO SCH (09:00)
[2017-10-05] MEDS: DIVALPROEX SPRINKLE 125 MG CAP.SPRINK PO SCH ×2 (09:00→21:00)
[2017-10-05] MEDS: MULTIVITAMINS,THERAPEUTIC TABLET PO SCH (09:00)
[2017-10-05] MEDS: ASPIRIN EC 81 MG TABLET.DR PO SCH (09:00)
[2017-10-05] MEDS ORDERED: Medication Not On Formulary EA ([Folic Acid] 1 MG) PO SCH (09:00)
[2017-10-05 16:00] VITALS: BP 92/50
[2017-10-05] MEDS: CEFTRIAXONE 1 G VIAL IM SCH (17:00)
[2017-10-05] MEDS: MAG HYDROX/AL HYDROX/SIMETH 30 ML LIQUID UDC PO PRN (19:55)
[2017-10-05 20:20] VITALS: BP 142/72
[2017-10-05] MEDS: MIRTAZAPINE 15 MG TABLET PO SCH (21:00)
[2017-10-05] MEDS: ATORVASTATIN 10 MG TABLET PO SCH (21:00)
[2017-10-06] MEDS: LEVOTHYROXINE SODIUM 50 MCG TABLET PO SCH (06:18)
[2017-10-06] MEDS: PANTOPRAZOLE SODIUM 40 MG TABLET.DR PO SCH (06:18)
[2017-10-06 07:30] VITALS: BP 139/83
[2017-10-06] MEDS: OXYBUTYNIN CHLORIDE 5 MG TABLET PO SCH ×2 (09:00→20:37)
[2017-10-06] MEDS: THIAMINE HCL 100 MG TABLET PO SCH (09:00)
[2017-10-06] MEDS: ASPIRIN EC 81 MG TABLET.DR PO SCH (09:00)
[2017-10-06] MEDS: CLOPIDOGREL 75 MG TABLET PO SCH (09:00)
[2017-10-06] MEDS: Z GUARD REMEDY PASTE 57 GM TUBE TOP SCH ×2 (09:00→20:24)
[2017-10-06] MEDS: QUETIAPINE FUMARATE 25 MG TABLET PO SCH ×2 (09:00→20:24)
[2017-10-06] MEDS: MULTIVITAMINS,THERAPEUTIC TABLET PO SCH (09:00)
[2017-10-06] MEDS: DIVALPROEX SPRINKLE 125 MG CAP.SPRINK PO SCH ×2 (09:00→20:37)
[2017-10-06] MEDS: FOLIC ACID 1 MG TABLET PO SCH (09:00)
[2017-10-06] MEDS: SUCRALFATE 1 G TABLET PO SCH ×4 (09:27→20:22)
[2017-10-06] MEDS ORDERED: HALOPERIDOL LACTATE 5 MG/1 ML VIAL IM SCH (12:00)
[2017-10-06 15:00] VITALS: BP 155/64
[2017-10-06] MEDS: CEFTRIAXONE 1 G VIAL IM SCH ×2 (17:00→18:38)
[2017-10-06 20:11] VITALS: BP 101/67
[2017-10-06] MEDS: BENZTROPINE MESYLATE 0.5 MG TABLET PO SCH (20:22)
[2017-10-06] MEDS: MIRTAZAPINE 15 MG TABLET PO SCH (20:37)
[2017-10-06] MEDS ORDERED: HALOPERIDOL LACTATE 5 MG/1 ML VIAL IM PRN (20:45)
[2017-10-06] MEDS: ATORVASTATIN 10 MG TABLET PO SCH (21:00)
[2017-10-06] MEDS ORDERED: BENZTROPINE MESYLATE 2 MG/2 ML AMPUL IM PRN (21:00)
[2017-10-07] MEDS: LEVOTHYROXINE SODIUM 50 MCG TABLET PO SCH (06:14)
[2017-10-07] MEDS: PANTOPRAZOLE SODIUM 40 MG TABLET.DR PO SCH (06:15)
[2017-10-07 07:30] VITALS: BP 115/73
[2017-10-07 07:46] LABS: ALANINE AMINOTRANSFERASE 15 U/L (14-59); ALKALINE PHOSPHATASE 59 U/L (50-136); ASPARTATE AMINOTRANSFERASE 26 U/L (15-37); BILIRUBIN,TOTAL 0.3 mg/dL (0.2-1.0); CARBON DIOXIDE 28 mmol/L (21-32); CHLORIDE 102 mmol/L (98-107); CHOLESTEROL 169 mg/dL (<200); CREATININE 1.2 mg/dL (0.6-1.3); GLUCOSE 90 mg/dL (74-106); HDL CHOLESTEROL 47 mg/dL (40-60); MAGNESIUM 2.3 mg/dL (1.8-2.4); PHOSPHOROUS 3.5 mg/dL (2.5-4.9); POTASSIUM 4.6 mmol/L (3.5-5.1); TOTAL PROTEIN, SERUM 6.6 g/dL (6.4-8.2); TRIGLYCERIDES 95 MG/DL (30-150); UREA NITROGEN, BLOOD 22 mg/dL (7-18)
[2017-10-07 07:52] LABS: BASOPHILS % (AUTO) 0.6 % (0.0-2.0); EOSINOPHILS # (AUTO) 0.1 K/uL (0.0-0.7); EOSINOPHILS % (AUTO) 1.8 % (0.0-7.0); HEMATOCRIT 31.6 % (31.2-41.9); HEMOGLOBIN 10.5 g/dL (10.9-14.3); LYMPHOCYTES # (AUTO) 1.1 K/uL (20.0-40.0); LYMPHOCYTES % (AUTO) 22.7 % (20.5-51.5); MEAN CORPUSCULAR HGB CONC 33 g/dL (32.3-35.6); MEAN CORPUSCULAR VOLUME 93.4 fL (75.5-95.3); MONOCYTES # (AUTO) 0.6 K/uL (2.0-10.0); MONOCYTES % (AUTO) 11.7 % (0.0-11.0); NEUTROPHILS % (AUTO) 63.2 % (38.5-71.5); PLATELET COUNT (AUTO) 256 K/uL (179-408); RED BLOOD CELL COUNT(AUTO) 3.38 MIL/uL (3.63-4.92); WHITE BLOOD COUNT (AUTO) 4.7 K/uL (3.8-11.8)
[2017-10-07] MEDS: MULTIVITAMINS,THERAPEUTIC TABLET PO SCH (08:16)
[2017-10-07] MEDS: SUCRALFATE 1 G TABLET PO SCH ×4 (08:16→20:45)
[2017-10-07] MEDS: DIVALPROEX SPRINKLE 125 MG CAP.SPRINK PO SCH ×2 (08:16→20:45)
[2017-10-07] MEDS: QUETIAPINE FUMARATE 25 MG TABLET PO SCH ×2 (08:16→20:46)
[2017-10-07] MEDS: OXYBUTYNIN CHLORIDE 5 MG TABLET PO SCH ×2 (08:16→20:45)
[2017-10-07] MEDS: ASPIRIN EC 81 MG TABLET.DR PO SCH (08:16)
[2017-10-07] MEDS: CLOPIDOGREL 75 MG TABLET PO SCH (08:16)
[2017-10-07] MEDS: FOLIC ACID 1 MG TABLET PO SCH (08:16)
[2017-10-07] MEDS: THIAMINE HCL 100 MG TABLET PO SCH (08:16)
[2017-10-07] MEDS: Z GUARD REMEDY PASTE 57 GM TUBE TOP SCH ×2 (08:20→20:47)
[2017-10-07 15:00] VITALS: BP 102/52
[2017-10-07] MEDS ORDERED: CEPHALEXIN MONOHYDRATE 500 MG CAPSULE PO SCH (16:00)
[2017-10-07] MEDS: CEPHALEXIN MONOHYDRATE 250 MG CAPSULE PO SCH ×2 (16:20→21:07)
[2017-10-07 20:36] VITALS: BP 98/50
[2017-10-07] MEDS: BENZTROPINE MESYLATE 0.5 MG TABLET PO SCH (20:45)
[2017-10-07] MEDS: MIRTAZAPINE 15 MG TABLET PO SCH (20:46)
[2017-10-07] MEDS: ATORVASTATIN 10 MG TABLET PO SCH (20:46)
[2017-10-08] MEDS: LEVOTHYROXINE SODIUM 50 MCG TABLET PO SCH (06:21)
[2017-10-08] MEDS: CEPHALEXIN MONOHYDRATE 250 MG CAPSULE PO SCH ×3 (06:21→21:00)
[2017-10-08] MEDS: PANTOPRAZOLE SODIUM 40 MG TABLET.DR PO SCH (06:21)
[2017-10-08 07:27] LABS: *BILIRUBIN,URIN NEGATIVE (NEGATIVE); *BLOOD, URINE Trace-lysed (NEGATIVE); *CLARITY,URINE CLEAR (CLEAR); *COLOR,URINE LIGHT YELLOW (YELLOW); *KETONES,URINE NEGATIVE (NEGATIVE); *PROTEIN,URINE NEGATIVE (NEGATIVE); *UROBILINOGEN,URINE 0.2 E.U./dl (NORMAL); LEUKOCYTE ESTERASE ,URINE NEGATIVE (NEGATIVE); NITRITE, URINE NEGATIVE (NEGATIVE); UGLUCOSE NEGATIVE (NEGATIVE)
[2017-10-08] MEDS: SUCRALFATE 1 G TABLET PO SCH ×4 (07:36→20:43)
[2017-10-08 07:39] LABS: IRON, SERUM 43 ug/dL (50-175)
[2017-10-08 07:57] LABS: BACTERIA,URINE FEW /HPF (NONE SEEN); RBC,URINE 0-3 /HPF (0-3); SQUAMOUS EPITHELIAL CELL,UR FEW /HPF (NONE SEEN); WBC,URINE 0-3 /HPF (0-3)
[2017-10-08] MEDS: MULTIVITAMINS,THERAPEUTIC TABLET PO SCH (08:22)
[2017-10-08] MEDS: FOLIC ACID 1 MG TABLET PO SCH (08:23)
[2017-10-08] MEDS: DIVALPROEX SPRINKLE 125 MG CAP.SPRINK PO SCH ×2 (08:23→20:43)
[2017-10-08] MEDS: CLOPIDOGREL 75 MG TABLET PO SCH (08:24)
[2017-10-08] MEDS: ACETAMINOPHEN 325 MG TABLET PO PRN (08:24)
[2017-10-08] MEDS: ASPIRIN EC 81 MG TABLET.DR PO SCH (08:25)
[2017-10-08] MEDS: Z GUARD REMEDY PASTE 57 GM TUBE TOP SCH ×2 (08:28→21:00)
[2017-10-08] MEDS: OXYBUTYNIN CHLORIDE 5 MG TABLET PO SCH ×2 (08:28→20:43)
[2017-10-08] MEDS: THIAMINE HCL 100 MG TABLET PO SCH (08:30)
[2017-10-08] MEDS: QUETIAPINE FUMARATE 25 MG TABLET PO SCH ×2 (10:04→20:42)
[2017-10-08 15:00] VITALS: BP 115/60
[2017-10-08] MEDS: DOCUSATE SODIUM 100 MG CAPSULE PO SCH ×3 (16:15→20:43)
[2017-10-08] MEDS: CLONIDINE-TTS 1 PATCH TD SCH (16:38)
[2017-10-08 20:00] VITALS: BP 97/48
[2017-10-08] MEDS: MIRTAZAPINE 15 MG TABLET PO SCH (20:43)
[2017-10-08] MEDS: BENZTROPINE MESYLATE 0.5 MG TABLET PO SCH (20:43)
[2017-10-08] MEDS: ATORVASTATIN 10 MG TABLET PO SCH (20:43)
[2017-10-09] MEDS: CEPHALEXIN MONOHYDRATE 250 MG CAPSULE PO SCH ×3 (06:00→21:45)
[2017-10-09] MEDS: LEVOTHYROXINE SODIUM 50 MCG TABLET PO SCH (06:24)
[2017-10-09] MEDS: PANTOPRAZOLE SODIUM 40 MG TABLET.DR PO SCH (06:24)
[2017-10-09 07:30] VITALS: BP 143/57
[2017-10-09] MEDS: SUCRALFATE 1 G TABLET PO SCH ×4 (07:30→20:40)
[2017-10-09] MEDS: DIVALPROEX SPRINKLE 125 MG CAP.SPRINK PO SCH ×2 (08:41→20:40)
[2017-10-09] MEDS: FOLIC ACID 1 MG TABLET PO SCH (08:42)
[2017-10-09] MEDS: ASPIRIN EC 81 MG TABLET.DR PO SCH (08:42)
[2017-10-09] MEDS: CLOPIDOGREL 75 MG TABLET PO SCH (08:42)
[2017-10-09] MEDS: OXYBUTYNIN CHLORIDE 5 MG TABLET PO SCH ×2 (08:42→20:40)
[2017-10-09] MEDS: THIAMINE HCL 100 MG TABLET PO SCH (08:42)
[2017-10-09] MEDS: CLONAZEPAM 0.5 MG TABLET PO PRN (08:43)
[2017-10-09] MEDS: NICOTINE 7 MG/24HR PATCH TD SCH (08:43)
[2017-10-09] MEDS: MULTIVITAMINS,THERAPEUTIC TABLET PO SCH (08:43)
[2017-10-09] MEDS: QUETIAPINE FUMARATE 25 MG TABLET PO SCH ×2 (08:43→20:40)
[2017-10-09] MEDS: DOCUSATE SODIUM 100 MG CAPSULE PO SCH ×2 (09:00→20:40)
[2017-10-09] MEDS: Z GUARD REMEDY PASTE 57 GM TUBE TOP SCH ×2 (10:06→21:29)
[2017-10-09 15:45] VITALS: BP 150/73
[2017-10-09 19:59] VITALS: BP 142/57
[2017-10-09] MEDS: ATORVASTATIN 10 MG TABLET PO SCH (20:40)
[2017-10-09] MEDS: BENZTROPINE MESYLATE 0.5 MG TABLET PO SCH (20:40)
[2017-10-09] MEDS: MIRTAZAPINE 15 MG TABLET PO SCH (21:45)
[2017-10-10] MEDS: CEPHALEXIN MONOHYDRATE 250 MG CAPSULE PO SCH ×2 (05:50→13:06)
[2017-10-10] MEDS: LEVOTHYROXINE SODIUM 50 MCG TABLET PO SCH ×2 (06:00→06:09)
[2017-10-10] MEDS: PANTOPRAZOLE SODIUM 40 MG TABLET.DR PO SCH (06:00)
[2017-10-10] MEDS: SUCRALFATE 1 G TABLET PO SCH ×4 (07:23→21:12)
[2017-10-10 07:30] VITALS: BP 119/57
[2017-10-10 07:47] LABS: BASOPHILS % (AUTO) 0.6 % (0.0-2.0); EOSINOPHILS # (AUTO) 0.1 K/uL (0.0-0.7); EOSINOPHILS % (AUTO) 2.6 % (0.0-7.0); HEMATOCRIT 29.4 % (31.2-41.9); HEMOGLOBIN 9.8 g/dL (10.9-14.3); LYMPHOCYTES # (AUTO) 1.3 K/uL (20.0-40.0); LYMPHOCYTES % (AUTO) 29.5 % (20.5-51.5); MEAN CORPUSCULAR HEMOGLOBIN 31.2 uug (24.7-32.8); MEAN CORPUSCULAR HGB CONC 33 g/dL (32.3-35.6); MEAN CORPUSCULAR VOLUME 93.2 fL (75.5-95.3); MONOCYTES # (AUTO) 0.5 K/uL (2.0-10.0); MONOCYTES % (AUTO) 11.5 % (0.0-11.0); NEUTROPHILS # (AUTO) 2.5 K/uL (1.8-8.9); NEUTROPHILS % (AUTO) 55.8 % (38.5-71.5); PLATELET COUNT (AUTO) 321 K/uL (179-408); RED BLOOD CELL COUNT(AUTO) 3.16 MIL/uL (3.63-4.92); WHITE BLOOD COUNT (AUTO) 4.6 K/uL (3.8-11.8)
[2017-10-10 08:08] LABS: ALANINE AMINOTRANSFERASE 16 U/L (14-59); ALKALINE PHOSPHATASE 66 U/L (50-136); ASPARTATE AMINOTRANSFERASE 19 U/L (15-37); BILIRUBIN,TOTAL 0.2 mg/dL (0.2-1.0); CARBON DIOXIDE 27 mmol/L (21-32); CHLORIDE 101 mmol/L (98-107); CREATININE 1.3 mg/dL (0.6-1.3); GLUCOSE 86 mg/dL (74-106); MAGNESIUM 2.1 mg/dL (1.8-2.4); PHOSPHOROUS 4.1 mg/dL (2.5-4.9); POTASSIUM 4.6 mmol/L (3.5-5.1); TOTAL PROTEIN, SERUM 6.4 g/dL (6.4-8.2); UREA NITROGEN, BLOOD 25 mg/dL (7-18)
[2017-10-10] MEDS: NICOTINE 7 MG/24HR PATCH TD SCH (09:00)
[2017-10-10] MEDS: DIVALPROEX SPRINKLE 125 MG CAP.SPRINK PO SCH ×2 (09:48→21:11)
[2017-10-10] MEDS: QUETIAPINE FUMARATE 25 MG TABLET PO SCH ×2 (09:48→21:12)
[2017-10-10] MEDS: MULTIVITAMINS,THERAPEUTIC TABLET PO SCH (09:48)
[2017-10-10] MEDS: CLOPIDOGREL 75 MG TABLET PO SCH (09:48)
[2017-10-10] MEDS: THIAMINE HCL 100 MG TABLET PO SCH (09:48)
[2017-10-10] MEDS: ASPIRIN EC 81 MG TABLET.DR PO SCH (09:48)
[2017-10-10] MEDS: FOLIC ACID 1 MG TABLET PO SCH (09:48)
[2017-10-10] MEDS: OXYBUTYNIN CHLORIDE 5 MG TABLET PO SCH ×2 (09:48→21:13)
[2017-10-10] MEDS: DOCUSATE SODIUM 100 MG CAPSULE PO SCH ×2 (09:48→21:12)
[2017-10-10] MEDS: Z GUARD REMEDY PASTE 57 GM TUBE TOP SCH ×2 (09:49→21:13)
[2017-10-10] MEDS: CLONAZEPAM 0.5 MG TABLET PO PRN (10:58)
[2017-10-10 15:12] VITALS: BP 101/57
[2017-10-10 20:00] VITALS: BP 115/54
[2017-10-10] MEDS: ATORVASTATIN 10 MG TABLET PO SCH (21:11)
[2017-10-10] MEDS: MIRTAZAPINE 15 MG TABLET PO SCH (21:11)
[2017-10-10] MEDS: BENZTROPINE MESYLATE 0.5 MG TABLET PO SCH (21:12)
[2017-10-11] MEDS: LEVOTHYROXINE SODIUM 50 MCG TABLET PO SCH (06:01)
[2017-10-11] MEDS: PANTOPRAZOLE SODIUM 40 MG TABLET.DR PO SCH (06:01)
[2017-10-11 07:30] VITALS: BP 122/53
[2017-10-11] MEDS: SUCRALFATE 1 G TABLET PO SCH ×2 (07:30→12:44)
[2017-10-11] MEDS: NICOTINE 7 MG/24HR PATCH TD SCH (09:00)
[2017-10-11] MEDS: FOLIC ACID 1 MG TABLET PO SCH (09:13)
[2017-10-11] MEDS: MULTIVITAMINS,THERAPEUTIC TABLET PO SCH (09:13)
[2017-10-11] MEDS: DIVALPROEX SPRINKLE 125 MG CAP.SPRINK PO SCH (09:14)
[2017-10-11] MEDS: Z GUARD REMEDY PASTE 57 GM TUBE TOP SCH (09:14)
[2017-10-11] MEDS: DOCUSATE SODIUM 100 MG CAPSULE PO SCH (09:14)
[2017-10-11] MEDS: THIAMINE HCL 100 MG TABLET PO SCH (09:14)
[2017-10-11] MEDS: CLOPIDOGREL 75 MG TABLET PO SCH (09:14)
[2017-10-11] MEDS: QUETIAPINE FUMARATE 25 MG TABLET PO SCH (09:14)
[2017-10-11] MEDS: ASPIRIN EC 81 MG TABLET.DR PO SCH (09:14)
[2017-10-11] MEDS: OXYBUTYNIN CHLORIDE 5 MG TABLET PO SCH (09:14)
[2017-10-11 12:46] LABS: *OCCULT BLOOD STOOL POSITIVE (NEGATIVE)
== END 2017-10-11 15:45 | disposition home health service (06) | DRG 885 ==
LOC: ER 13:10 → GPS 23:21
PROVIDERS: ADMIT Psychiatry & Neurology Psychiatry; ATTEND Internal Medicine
DX: F32.3 Major depressive disorder, single episode, severe with psychotic features (principal); N18.9 Chronic kidney disease, unspecified; N17.0 Acute kidney failure with tubular necrosis; N39.0 Urinary tract infection, site not specified; M80.08XA Age-related osteoporosis with current pathological fracture, vertebra(e), initial encounter for fracture; E44.0 Moderate protein-calorie malnutrition; Z68.1 Body mass index [BMI] 19.9 or less, adult; I13.10 Hypertensive heart and chronic kidney disease without heart failure, with stage 1 through stage 4 chronic kidney disease, or unspecified chronic kidney disease; E03.9 Hypothyroidism, unspecified; K21.9 Gastro-esophageal reflux disease without esophagitis; N32.81 Overactive bladder; B96.20 Unspecified Escherichia coli [E. coli] as the cause of diseases classified elsewhere; I25.10 Atherosclerotic heart disease of native coronary artery without angina pectoris; K57.30 Diverticulosis of large intestine without perforation or abscess without bleeding; Z90.10 Acquired absence of unspecified breast and nipple; Z85.3 Personal history of malignant neoplasm of breast; Z91.19 Patient's noncompliance with other medical treatment and regimen; Z87.01 Personal history of pneumonia (recurrent); Z79.899 Other long term (current) drug therapy; Z79.82 Long term (current) use of aspirin; F41.9 Anxiety disorder, unspecified; E78.5 Hyperlipidemia, unspecified; M77.9 Enthesopathy, unspecified; M48.00 Spinal stenosis, site unspecified; D64.9 Anemia, unspecified
CPT/HCPCS: 36415; 70030-TC; 71045; 72131; 73020; 73060; 73502; 80307; 83550; 83605; 83735; 84100; 84443; 85025; 85730; 87040; 87077; 87086; 93005; 97116; 97530; A4663; A9150; G0480; G0480-TC; J0696; J1630; J2060